=== PATIENT | male | born 1990 | race Caucasian/White ===

== ENCOUNTER 2022-12-17 11:12 | Emergency (ER) | payer OTHER ==
[~2022-12-17] VITALS: Ht 172.7 cm; Wt 63.5 kg
--- NOTE | 2022-12-17 11:30 | NUR ---
BIBS c/o r ear pain since this morning 07/28 ps.
--- NOTE | 2022-12-17 11:50 | NUR ---
AT BEDSIDE FOR EVAL.
[2022-12-17] MEDS ORDERED: AMOXICILLIN TRIHYDRATE 250 MG CAPSULE ONE (12:20)
[2022-12-17] MEDS ORDERED: AMOXICILLIN TRIHYDRATE 500 MG CAPSULE PO ONE (12:30)
[2022-12-17] MEDS ORDERED: AMOX875T2 PO (12:46)
--- NOTE | 2022-12-17 13:20 | NUR ---
Patient discharged to home in stable condition. Written and verbal after care instructions given. Patient verbalizes understanding of instruction.
[2022-12-17 13:38] VITALS: BP 130/67
== END 2022-12-17 13:20 | disposition home or self-care (01) ==
LOC: ER 11:18
DX: H66.91 Otitis media, unspecified, right ear (principal)